=== PATIENT | male | born 1940 | race Caucasian/White ===

== ENCOUNTER 2020-01-21 03:06 | Inpatient (IN) ==
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
--- NOTE | 2020-01-21 09:45 | XRay Report ---
INDICATION: pain; hx metast pancreatic ca; hx constipation TECHNIQUE: Supine and upright abdomen. COMPARISON: Comparison made with previous examination dated 08/30/2019. Patient has undergone previous abdominal MRI scan on 09/14/2019. FINDINGS:Bowel gas pattern is unremarkable. Colon is within normal limits. No evidence for significant constipation. There is no impaction. No gas-filled dilated small bowel. No evidence for mechanical small bowel obstruction. There is no biliary or portal venous gas. No pneumatosis. Incidental note is made of degenerative disc disease in the lower lumbar spine IMPRESSION: 1. Nonspecific and nonobstructive bowel gas pattern 2. No focal abnormality Interpreted and Authenticated by: Erik Bishop 01/21/20
[2020-01-21] MEDS ORDERED: ONDANSETRON 4 MG/2 ML VIAL IV PRN (11:07)
[2020-01-21] MEDS ORDERED: morphine 2 MG/ML VIAL IV PRN (11:07)
[2020-01-21] MEDS ORDERED: LACTOPEROXI/GLUC OXID/POT THIO 1 EACH GEL..EA. TOPICAL PRN (12:34)
--- NOTE | 2020-01-21 12:35 | Internal Med History&Physical ---
HPI History of Present Illness Patient information: Note initiated : 01/21/20 at 12:35 pm Service Date, if different from initiated Date: [] Patient: Bright Ball a 79 y/o M admitted on 01/21/20 for Cancer pain. Chief Complaint: Altered mental status/aggressive behavior History of present illness: Mr. Ball is a 79 year old M with a known pancreatic adenocarcinoma on hospice who has been living with his with ongoing end-of-life care. He is currently on multiple opioids/antianxiety and antipsychotic medications. However over the last 24 hours patient has become increasingly agitated confused and combative to the point his is extremely concerned about her ability to take care of him and fearful of injury due to his aggressive behavior. He has also been refusing his medications and the reason she brought him to the ER for further evaluation and possible placement On arrival patient is minimally responsive, altered. After discussion with family it was decided the patient will be admitted to the hospital service. Subsequently hospitalist service was consulted At the time of my evaluation patient is very responsive. GCS 6. No family members available. Most of the history was obtained from review of medical records and from ER physician. Case management was consulted and they would be able to place patient in a care center in the next 24 hours. At this time patient will be continued on hospice with aggressive pain and symptom management. Review of systems Unable to obtain in light of patient's mental status PFSH PFSH All Active Problems (Updated 01/21/20 @ 09:57 by Michael Reddy DO) Acute urinary retention (Acute) Agitation (Acute) Aggressive behavior (Acute) Caregiver has difficulty performing caretaking (Acute) Hospice care patient (Acute) Displacement of Martinez catheter (Acute) Pressure ulcer of right foot (Acute) Pressure ulcer of sacral region, stage 2 (Acute) Hallucinations (Acute) Paranoia (Acute) Acute urinary retention (Chronic) Basal cell carcinoma of skin, unspecified (Chronic) Anxiety disorder (Chronic) Malignant neoplasm of pancreatic duct (Chronic) Elevated liver enzymes (Acute) Adenocarcinoma of pancreas (Acute) Abdominal pain (Chronic) Medical History (Updated 01/21/20 @ 09:57 by Michael Reddy DO) Acute urinary retention (Chronic) chronic Martinez since Oct? Pt pulled out 01-20-2020, replaced 01-21-2020. 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 Family History (Updated 12/27/19 @ 11:43 by Eunice Coffey) Other No pertinent family history Social History (System 07/05/19 @ 09:16 by Clair Moyer) smoking status: Unknown if ever smoked alcohol intake frequency: does not drink substance use type: does not use MEDS/ALLERGIES Home Medications and Allergies Home Medications Medication Instructions Recorded Confirmed Type oxycodone-acetaminophen [Percocet] 1 tab PO Q4H PRN #20 tab 10/06/19 10/09/19 Rx lorazepam [Ativan] 1 mg PO TID PRN #20 tab 10/09/19 Rx ondansetron 4 mg PO Q4-6HP PRN #10 tab 10/09/19 Rx promethazine 25 mg PO Q6H PRN #10 tab 10/09/19 Rx Haldol 2 mg PO Q12 PRN 01/21/20 01/21/20 History acetaminophen NJ 01/21/20 History bisacodyl mg NJ 01/21/20 History fentanyl 01/21/20 History fentanyl 01/21/20 History hydrocodone-acetaminophen tab PO Q4 PRN 01/21/20 History hyoscyamine sulfate [Levsin] 0.25 mg PO QID PRN 01/21/20 01/21/20 History lorazepam [Ativan] PRN MDD anxiety or nausea 01/21/20 History magnesium citrate 300 ml PO ONCE 01/21/20 01/21/20 History mirtazapine 30 mg PO QHS 01/21/20 01/21/20 History mirtazapine mg PO HS 01/21/20 History morphine 5 - 20 mg PO PRN 01/21/20 History morphine [MS Contin] 15 mg PO Q12H 01/21/20 01/21/20 History morphine [MS Contin] 30 mg PO Q12H 01/21/20 01/21/20 History morphine [MS Contin] 60 mg PO Q12H 01/21/20 01/21/20 History omeprazole 20 mg PO QDAY 01/21/20 01/21/20 History oxycodone-acetaminophen 1 tab PO Q4H PRN 01/21/20 01/21/20 History scopolamine base [Transderm-Scop] 1 patch TRANSDERMAL Q72H 01/21/20 01/21/20 History sennosides-docusate sodium 1 tab-cap PO QHS 01/21/20 01/21/20 History [Senokot-S] silver [SilvaSorb Dressing] ea TOPICAL WEEKLY 01/21/20 History tamsulosin 0.4 mg PO QDAY 01/21/20 01/21/20 History Allergies Allergy/AdvReac Type Severity Reaction Status Date / Time No Known Drug Allergies Allergy Verified 01/21/20 03:19 EXAM Constitutional Vitals: Temp Pulse Resp BP Pulse Ox 98.6 F 91 H 22 94/63 93 01/21/20 03:25 01/21/20 11:43 01/21/20 03:58 01/21/20 11:01 01/21/20 11:43 physical examination deferred in light of patient's comfort GCS 11 Frail/icteric A/P Narrative A/P Narrative: * Adenocarcinoma pancreas currently on hospice. Continue aggressive pain and symptom management * Self-care deficits-patient will be transferred to care facility currently being coordinated by case management . Plan * Observation admission * Aggressive pain and symptom management * Case management to coordinate transfer to care facility due to profound self- care deficit Time Spent With Patient Time: Total time spent is greater than 50% in coordination of care (as doc umented) at patient's floor/unit and/or counseling patient: QUALITY Stroke Symptom Onset Unknown: No
[2020-01-21] MEDS: LORazepam 2 MG/ML VIAL IV PRN (21:48)
[2020-01-21] MEDS: HYDROmorphone 1 MG/ML SYRINGE IV PRN (21:49)
[2020-01-21] MEDS: 0.9 % SODIUM CHLORIDE 10 ML SYRINGE IV SCH ×2 (22:24→22:25)
[2020-01-21] MEDS: 0.9 % SODIUM CHLORIDE 1,000 ML IV SCH (22:24)
[2020-01-21] MEDS: DOCUSATE SODIUM 100 MG CAPSULE PO SCH (22:25)
[2020-01-22] MEDS: LORazepam 2 MG/ML VIAL IV PRN ×4 (04:17→23:21)
[2020-01-22] MEDS: 0.9 % SODIUM CHLORIDE 10 ML SYRINGE IV SCH ×3 (07:23→21:51)
--- NOTE | 2020-01-22 10:22 | Internal Med Progress Note ---
SUBJECTIVE Subjective Patient information: Note initiated : 01/22/20 at 10:19 am Service Date, if different from initiated Date: [] Patient: Bright Ball a 79 y/o M admitted on 01/21/20 for Cancer pain. Chief Complaint: History of present illness: Mr. 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 He is currently on multiple opioids/antianxiety and antipsychotic medications. However over the last 24 hours patient has become increasingly agitated confused and combative to the point his is extremely concerned about her ability to take care of him and fearful of injury due to his aggressive behavior. He has also been refusing his medications and the reason she brought him to the ER for further evaluation and possible placement On arrival patient is minimally responsive, altered. After discussion with family it was decided the patient will be admitted to the hospital service. Subsequently hospitalist service was consulted At the time of my evaluation patient is very responsive. GCS 6. No family members available. Most of the history was obtained from review of medical records and from ER physician. Case management was consulted and they would be able to place patient in a care center in the next 24 hours. At this time patient will be continued on hospice with aggressive pain and symptom management. 01/21-patient on end-of-life care. No overnight events. Sats low 90s. Systolics around 80s. Remains unresponsive. Appears comfortable. No concerns expressed by nursing staff. Case management coordinating transition to hospice and considering available options including home hospice versus facility transfer for end-of-life care. Constitutional Vitals: Vital Signs Temp Pulse Resp BP Pulse Ox 98.3 F 102 H 20 95/62 96 01/22/20 07:13 01/21/20 19:16 01/22/20 07:13 01/22/20 07:13 01/22/20 07:13 Period Temp Pulse Resp BP Sys/Chance Pulse Ox Last 24 Hr 97.0 F-98.8 F 90-102 16-20 85-100/60-66 93-100 Intake and Output 01/21/20 01/22/20 01/22/20 21:59 05:59 13:59 Output Total 800 Balance -800 Weight 68.039 kg Sedated and nonresponsive Nonlabored breathing No anxiety or discomfort noted Intake & Output: Intake & Output 01/21/20 01/22/20 01/22/20 21:59 05:59 13:59 Output Total 800 Balance -800 Weight 68.039 kg Output: Urine Catheter Amount 800 Other: Urine Color Tea Colored Uretheral (Martinez) Dark Tati OBJ DATA Labs Meds: Medications Docusate Sodium (Colace) 100 mg PO BID [facility] Last Admin: 01/21/20 22:25 Dose: Not Given Documented by: Glucose Oxid/Lactoperoxid/Muramidas (Biotene) 1 each TOPICAL PRN PRN PRN Reason: Dry Mouth Hydromorphone HCl (Dilaudid) 0 mg IV Q2HP PRN; Protocol PRN Reason: Per Pain Protocol Last Admin: 01/21/20 21:49 Dose: 1 mg Documented by: Sodium Chloride (Sodium Chloride 0.9%) 1,000 mls @ 50 mls/hr IV .Q20H [facility] Last Admin: 01/21/20 22:24 Dose: 50 mls/hr Documented by: Lorazepam (Ativan) 0 mg IV Q1HP PRN; Protocol PRN Reason: ANXIETY/SEDATION Last Admin: 01/22/20 04:17 Dose: 2 mg Documented by: Ondansetron HCl (Zofran) 4 mg IV Q4HP PRN PRN Reason: Nausea And Vomiting Sodium Chloride (Saline Flush) 10 ml IV Q8 [facility] Last Admin: 01/22/20 07:23 Dose: Not Given Documented by: A/P Narrative A/P Narrative: * Adenocarcinoma pancreas currently on end-of-life care/palliation. Continue aggressive pain and symptom management, anticipate transfer to facility for continued end-of-life care as family unable to take care of patient due to intermittent aggression * Intermittent aggressive/psychotic episodes-on sedative-hypnotics and antipsychotics as needed * Self-care deficits-will need facility transfer Plan * Continue aggressive pain and symptom management * Case management coordinating transfer to facility for continued end-of-life care Time Spent With Patient Time: Total time spent is greater than 50% in coordination of care (as documented) at patient's floor/unit and/or counseling patient: QUALITY Stroke Symptom Onset Unknown: No
[2020-01-22] MEDS: 0.9 % SODIUM CHLORIDE 1,000 ML IV SCH ×3 (11:18→21:51)
[2020-01-22] MEDS: DOCUSATE SODIUM 100 MG CAPSULE PO SCH ×2 (11:18→21:51)
--- NOTE | 2020-01-22 13:37 | Internal Med Progress Note ---
SUBJECTIVE Subjective Patient information: Note initiated : 01/22/20 at 1:34 pm Service Date, if different from initiated Date: [] Patient: Bright Ball a 79 y/o M admitted on 01/21/20 for Cancer pain. Chief Complaint: [] Interval history: History of present illness: Mr. Ball is a 79 year old M with a known pancreatic adenocarcinoma on hospice who has been living with his with ongoing end-of-life care. He is currently on multiple opioids/antianxiety and antipsychotic medications. However over the last 24 hours patient has become increasingly agitated confused and combative to the point his is extremely concerned about her ability to take care of him and fearful of injury due to his aggressive behavior. He has also been refusing his medications and the reason she brought him to the ER for further evaluation and possible placement On arrival patient is minimally responsive, altered. After discussion with family it was decided the patient will be admitted to the hospital service. Subsequently hospitalist service was consulted At the time of my evaluation patient is very responsive. GCS 6. No family members available. Most of the history was obtained from review of medical records and from ER physician. Case management was consulted and they would be able to place patient in a care center in the next 24 hours. At this time patient will be continued on hospice with aggressive pain and symptom management. 01/21-patient on end-of-life care. No overnight events. Sats low 90s. Systolics around 80s. Remains unresponsive. Appears comfortable. No concerns expressed by nursing staff. Case management coordinating transition to hospice and considering available options including home hospice versus facility transfer for end-of-life care. 01/22 Constitutional Vitals: Vital Signs Temp Pulse Resp BP Pulse Ox 98.3 F 102 H 20 95/62 96 01/22/20 07:13 01/21/20 19:16 01/22/20 09:00 01/22/20 07:13 01/22/20 09:00 Period Temp Pulse Resp BP Sys/Chance Pulse Ox Last 24 Hr 98 F-98.8 F 102 18-20 85-95/61-65 96-100 Intake and Output 01/21/20 01/22/20 01/22/20 21:59 05:59 13:59 Output Total 800 Balance -800 Weight 68.039 kg Intake & Output: Intake & Output 01/21/20 01/22/20 01/22/20 21:59 05:59 13:59 Output Total 800 Balance -800 Weight 68.039 kg Output: Urine Catheter Amount 800 Other: Urine Color Tea Colored Tea Colored Uretheral (Martinez) Dark Tati Dark Tati Exam: General: Alert, Awake, No acute Distress Eyes/N/T: EOMI, Head/Neck: neck supple, CV: RRR, No murmurs, Pulm: Clear b/l, no wheezing/rhonchi/rales Abd: soft, nontender, +BS x4 Ext: no clubbing/cyanosis/edema Neuro: Alert, no focal deficits, moves all extremities, Skin: warm/dry OBJ DATA Labs Meds: Medications Docusate Sodium (Colace) 100 mg PO BID [facility] Last Admin: 01/22/20 11:18 Dose: Not Given Documented by: Glucose Oxid/Lactoperoxid/Muramidas (Biotene) 1 each TOPICAL PRN PRN PRN Reason: Dry Mouth Hydromorphone HCl (Dilaudid) 0 mg IV Q2HP PRN; Protocol PRN Reason: Per Pain Protocol Last Admin: 01/21/20 21:49 Dose: 1 mg Documented by: Sodium Chloride (Sodium Chloride 0.9%) 1,000 mls @ 50 mls/hr IV .Q20H [facility] Last Admin: 01/22/20 11:18 Dose: Not Given Documented by: Lorazepam (Ativan) 0 mg IV Q1HP PRN; Protocol PRN Reason: ANXIETY/SEDATION Last Admin: 01/22/20 04:17 Dose: 2 mg Documented by: Ondansetron HCl (Zofran) 4 mg IV Q4HP PRN PRN Reason: Nausea And Vomiting Sodium Chloride (Saline Flush) 10 ml IV Q8 [facility] Last Admin: 01/22/20 07:23 Dose: Not Given Documented by: A/P Narrative A/P Narrative: A/P: *Adenocarcinoma pancreas currently on end-of-life care/palliation -Continue aggressive pain and symptom management, anticipate transfer to facility for continued end-of-life care as family unable to take care of patient due to intermittent aggression *Intermittent aggressive/psychotic episodes: -on sedative-hypnotics and antipsychotics as needed *Self-care deficits: will need facility transfer - for placement to facility on hospice Time Spent With Patient Time: Total time spent is greater than 50% in coordination of care (as documented) at patient's floor/unit and/or counseling patient: QUALITY Stroke Symptom Onset Unknown: No
[2020-01-22] MEDS: HYDROmorphone 1 MG/ML SYRINGE IV PRN (14:25)
--- NOTE | 2020-01-23 07:09 | Internal Med Progress Note ---
SUBJECTIVE Subjective Patient information: Note initiated : 01/23/20 at 7:08 am Service Date, if different from initiated Date: [] Patient: Bright Ball 79 y/o M admitted on 01/21/20 for Cancer pain. Chief Complaint: [] Interval history: History of present illness: Mr. Ball is a 79 year old M with a known pancreatic adenocarcinoma on hospice who has been living with his with ongoing end-of-life care. He is currently on multiple opioids/antianxiety and antipsychotic medications. However over the last 24 hours patient has become increasingly agitated confused and combative to the point his is extremely concerned about her ability to take care of him and fearful of injury due to his aggressive behavior. He has also been refusing his medications and the reason she brought him to the ER for further evaluation and possible placement On arrival patient is minimally responsive, altered. After discussion with family it was decided the patient will be admitted to the hospital service. Subsequently hospitalist service was consulted At the time of my evaluation patient is very responsive. GCS 6. No family members available. Most of the history was obtained from review of medical records and from ER physician. Case management was consulted and they would be able to place patient in a care center in the next 24 hours. At this time patient will be continued on hospice with aggressive pain and symptom management. 01/21-patient on end-of-life care. No overnight events. Sats low 90s. Systolics around 80s. Remains unresponsive. Appears comfortable. No concerns expressed by nursing staff. Case management coordinating transition to hospice and considering available options including home hospice versus facility transfer for end-of-life care. 01/22 No issues overnight. Unable to gather review of systems as patient is nonverbal Constitutional Vitals: Vital Signs Temp Pulse Resp BP Pulse Ox 97.1 F 83 16 95/62 95 01/22/20 20:00 01/22/20 20:00 01/22/20 20:00 01/22/20 07:13 01/22/20 20:00 Period Temp Pulse Resp BP Sys/Chance Pulse Ox Last 24 Hr 97.1 F-98.3 F 83 16-20 95/62 95-96 Intake and Output 01/22/20 01/23/20 01/23/20 21:59 05:59 13:59 Intake Total 801 Output Total 450 Balance 801 -450 Weight 68.492 kg Intake & Output: Intake & Output 01/22/20 01/23/20 01/23/20 21:59 05:59 13:59 Intake Total 801 Output Total 450 Balance 801 -450 Weight 68.492 kg Intake: IV 801 Sodium Chloride 0.9% 1,000 ml @ 801 50 mls/hr IV .Q20H [facility] Rx#: [id number] Output: Urine Catheter Amount 450 Other: Urine Appearance Sediment Uretheral (Martinez) Hematuria Urine Color Tea Colored Uretheral (Martinez) Tea Colored Urine Odor Strong Exam: General: sleeping, No acute Distress, cachectic Eyes/N/T: EOMI, Head/Neck: neck supple, CV: RRR, No murmurs, Pulm: Clear b/l, no wheezing/rhonchi/rales Abd: soft, nontender, +BS x4 Ext: no clubbing/cyanosis/edema Neuro: Minimally responsive, sleeping and partially opens eyes to touch, no focal deficits, moves all extremities, nonverbal Skin: warm/dry OBJ DATA Labs Meds: Medications Docusate Sodium (Colace) 100 mg PO BID [facility] Last Admin: 01/22/20 21:51 Dose: Not Given Documented by: Glucose Oxid/Lactoperoxid/Muramidas (Biotene) 1 each TOPICAL PRN PRN PRN Reason: Dry Mouth Hydromorphone HCl (Dilaudid) 0 mg IV Q2HP PRN; Protocol PRN Reason: Per Pain Protocol Last Admin: 01/22/20 14:25 Dose: 1 mg Documented by: Sodium Chloride (Sodium Chloride 0.9%) 1,000 mls @ 20 mls/hr IV .Q24H [facility] Last Admin: 01/22/20 21:51 Dose: Not Given Documented by: Lorazepam (Ativan) 0 mg IV Q1HP PRN; Protocol PRN Reason: ANXIETY/SEDATION Last Admin: 01/22/20 23:21 Dose: 2 mg Documented by: Ondansetron HCl (Zofran) 4 mg IV Q4HP PRN PRN Reason: Nausea And Vomiting Sodium Chloride (Saline Flush) 10 ml IV Q8 [facility] Last Admin: 01/22/20 21:51 Dose: Not Given Documented by: A/P Narrative A/P Narrative: A/P: *Adenocarcinoma pancreas currently on end-of-life care/palliation -Continue aggressive pain and symptom management, anticipate transfer to facility for continued end-of-life care as family unable to take care of patient due to intermittent aggression *Intermittent aggressive/psychotic episodes: -on sedative-hypnotics and antipsychotics as needed *Self-care deficits: will need facility transfer -CM for placement to facility on hospice Time Spent With Patient Time: Total time spent is greater than 50% in coordination of care (as documented) at patient's floor/unit and/or counseling patient: QUALITY Stroke Symptom Onset Unknown: No
[2020-01-23] MEDS: LORazepam 2 MG/ML VIAL IV PRN ×3 (07:44→20:06)
[2020-01-23] MEDS: 0.9 % SODIUM CHLORIDE 10 ML SYRINGE IV SCH ×3 (07:44→20:05)
[2020-01-23] MEDS: 0.9 % SODIUM CHLORIDE 1,000 ML IV SCH ×2 (09:00→16:22)
[2020-01-23] MEDS: DOCUSATE SODIUM 100 MG CAPSULE PO SCH ×2 (09:10→20:05)
--- NOTE | 2020-01-23 10:15 | Discharge Summary ---
Discharge Provider Provider Patient information: Note initiated : 01/23/20 at 10:13 am Service Date, if different from initiated Date: [] Patient: Bright Ball 79 y/o M admitted on 01/21/20 for Cancer pain. Chief Complaint: [] Date of admission: 01/21/20 11:44 Discharge date: 01/24/20 Primary care physician: Camron Gonzalez Consults: 01/22/20 09:22 Consult to Physician [CONS] Routine Comment: Consulting Provider: Rolf Echols Reason For Exam: Physician to Consult Discharge Meds Discharge Medications Home Medications oxycodone-acetaminophen [Percocet] 1 tab PO Q4H PRN #20 tab 10/06/19 [Rx Confirmed 10/09/19 Last Taken Unknown] lorazepam [Ativan] 1 mg PO TID PRN #20 tab 10/09/19 [Rx Last Taken Unknown] ondansetron 4 mg PO Q4-6HP PRN #10 tab 10/09/19 [Rx Last Taken Unknown] promethazine 25 mg PO Q6H PRN #10 tab 10/09/19 [Rx Last Taken Unknown] Haldol 2 mg PO Q12 PRN 01/21/20 [History Confirmed 01/21/20 Last Taken Unknown] SilvaSorb Dressing ea TOPICAL WEEKLY 01/21/20 [History Last Taken Unknown] acetaminophen [place] 01/21/20 [History Last Taken Unknown] bisacodyl mg [place] 01/21/20 [History Last Taken Unknown] fentanyl 01/21/20 [History Last Taken Unknown] fentanyl 01/21/20 [History Last Taken Unknown] hydrocodone-acetaminophen tab PO Q4 PRN 01/21/20 [History Last Taken Unknown] hyoscyamine sulfate [Levsin] 0.25 mg PO QID PRN 01/21/20 [History Confirmed 01/21/20 Last Taken Unknown] lorazepam [Ativan] PRN MDD anxiety or nausea 01/21/20 [History Last Taken Unknown] magnesium citrate 300 ml PO ONCE 01/21/20 [History Confirmed 01/21/20 Last Taken Unknown] mirtazapine 30 mg PO QHS 01/21/20 [History Confirmed 01/21/20 Last Taken Unknown] mirtazapine mg PO HS 01/21/20 [History Last Taken Unknown] morphine 5 - 20 mg PO PRN 01/21/20 [History Last Taken Unknown] morphine [MS Contin] 15 mg PO Q12H 01/21/20 [History Confirmed 01/21/20 Last Taken Unknown] morphine [MS Contin] 30 mg PO Q12H 01/21/20 [History Confirmed 01/21/20 Last Taken Unknown] morphine [MS Contin] 60 mg PO Q12H 01/21/20 [History Confirmed 01/21/20 Last Taken Unknown] omeprazole 20 mg PO QDAY 01/21/20 [History Confirmed 01/21/20 Last Taken Unknown] oxycodone-acetaminophen 1 tab PO Q4H PRN 01/21/20 [History Confirmed 01/21/20 Last Taken Unknown] scopolamine base [Transderm-Scop] 1 patch TRANSDERMAL Q72H 01/21/20 [History Confirmed 01/21/20 Last Taken Unknown] sennosides-docusate sodium [Senokot-S] 1 tab-cap PO QHS 01/21/20 [History Confirmed 01/21/20 Last Taken Unknown] tamsulosin 0.4 mg PO QDAY 01/21/20 [History Confirmed 01/21/20 Last Taken Unknown] COURSE Hospital Course Hospital course: History of present illness: Mr. Ball is a 79 year old M with a known pancreatic adenocarcinoma on hospice who has been living with his with ongoing end-of-life care. He is currently on multiple opioids/antianxiety and antipsychotic medications. However over the last 24 hours patient has become increasingly agitated confused and combative to the point his is extremely concerned about her ability to take care of him and fearful of injury due to his aggressive behavior. He has also been refusing his medications and the reason she brought him to the ER for further evaluation and possible placement On arrival patient is minimally responsive, altered. After discussion with family it was decided the patient will be admitted to the hospital service. Subsequently hospitalist service was consulted At the time of my evaluation patient is very responsive. GCS 6. No family members available. Most of the history was obtained from review of medical records and from ER physician. Case management was consulted and they would be able to place patient in a care center in the next 24 hours. At this time patient will be continued on hospice with aggressive pain and symptom management. 01/21-patient on end-of-life care. No overnight events. Sats low 90s. Systolics around 80s. Remains unresponsive. Appears comfortable. No concerns expressed by nursing staff. Case management coordinating transition to hospice and considering available options including home hospice versus facility transfer for end-of-life care. 01/22 No issues overnight. Unable to gather review of systems as patient is nonverbal 01/23 No issues overnight or new complaints. Patient minimally responsive unable to gather review of systems as patient is nonverbal A/P: *Adenocarcinoma pancreas currently on end-of-life care/palliation -Continue aggressive pain and symptom management, anticipate transfer to facility for continued end-of-life care as family unable to take care of patient due to intermittent aggression *Intermittent aggressive/psychotic episodes: -on sedative-hypnotics and antipsychotics as needed *Self-care deficits: will need facility transfer -CM for placement to facility on hospice Discharge diagnosis: Adenocarcinoma of the pancreas Time Spent with Patient Time attestation: Total time spent providing and/or coordinating discharge services: EXAM Constitutional Vitals: Temp Pulse Resp BP Pulse Ox 97.1 F 82 16 108/76 89 L 01/22/20 20:00 01/23/20 08:00 01/23/20 08:00 01/23/20 08:00 01/23/20 08:00 Discharge Plan Patient/Caregiver Discharge Instructions Activity: increase activity as tolerated Diet: Regular Diet Prescriptions: Continued oxycodone-acetaminophen [Percocet] 5-325 mg tablet 1 tab PO Q4H PRN (Reason: pain) Qty: 20 RF: 0 promethazine 25 mg Tablet 25 mg PO Q6H PRN (Reason: Nausea) Qty: 10 RF: 0 ondansetron 4 mg Tablet,Disintegrating 4 mg PO Q4-6HP PRN (Reason: Nausea) Qty: 10 RF: 0 lorazepam [Ativan] 1 mg tablet 1 mg PO TID PRN (Reason: nausea and vomiting) Qty: 20 RF: 0 Haldol 2 mg PO Q12 PRN (Reason: Agitation) RF: 0 morphine 5 - 20 mg PO PRN (Reason: pain or SOB) RF: 0 acetaminophen 650 mg suppository NJ RF: 0 bisacodyl 10 mg suppository NJ RF: 0 fentanyl 12 mcg/hr patch 72 hour RF: 0 hyoscyamine sulfate [Levsin] 0.125 mg Tablet 0.25 mg PO QID PRN (Reason: Secretions) RF: 0 magnesium citrate Solution 300 ml PO ONCE RF: 0 sennosides-docusate sodium [Senokot-S] 8.6-50 mg Tablet 1 tab-cap PO QHS RF: 0 oxycodone-acetaminophen 5-325 mg Tablet 1 tab PO Q4H PRN (Reason: pain or fever) RF: 0 morphine [MS Contin] 60 mg Tablet Extended Release 60 mg PO Q12H RF: 0 omeprazole 20 mg Capsule,Delayed Release(Dr/Ec) 20 mg PO QDAY RF: 0 SilvaSorb Dressing 4 X 8 " Bandage TOPICAL WEEKLY RF: 0 mirtazapine 30 mg Tablet,Disintegrating 30 mg PO QHS RF: 0 hydrocodone-acetaminophen 10-325 mg Tablet PO Q4 PRN (Reason: pain or fever) RF: 0 tamsulosin 0.4 mg Capsule 0.4 mg PO QDAY RF: 0 mirtazapine 15 mg tablet PO HS RF: 0 lorazepam [Ativan] 1 mg tablet MDD anxiety or nausea PRN (Reason: q8) RF: 0 fentanyl 12 mcg/hr patch 72 hour RF: 0 morphine [MS Contin] 30 mg Tablet Extended Release 30 mg PO Q12H RF: 0 morphine [MS Contin] 15 mg Tablet Extended Release 15 mg PO Q12H RF: 0 scopolamine base [Transderm-Scop] 1 mg over 3 days Patch 3 Day 1 patch TRANSDERMAL Q72H RF: 0 Follow Up Plan Follow up with: Camron Gonzalez MD [Primary Care Provider] - Patient Disposition: Xfer Assisted Living Facility Rehab Potential: Serious I certify that the patient requires SNF services: Yes Overall status at discharge: patient is not back to baseline Discharge Orders: Discharge Order (Routine); Ordered 01/24/20 Ordered By: Manuel Gibson
[2020-01-24] MEDS: LORazepam 2 MG/ML VIAL IV PRN (00:18)
[2020-01-24] MEDS: HYDROmorphone 1 MG/ML SYRINGE IV PRN ×2 (00:19→13:07)
[2020-01-24] MEDS: 0.9 % SODIUM CHLORIDE 10 ML SYRINGE IV SCH (05:58)
--- NOTE | 2020-01-24 07:17 | Internal Med Progress Note ---
SUBJECTIVE Subjective Patient information: Note initiated : 01/24/20 at 7:16 am Service Date, if different from initiated Date: [] Patient: Bright Ball 79 y/o M admitted on 01/23/20 for Cancer pain. Chief Complaint: [] Interval history: History of present illness: Mr. Ball is a 79 year old M with a known pancreatic adenocarcinoma on hospice who has been living with his with ongoing end-of-life care. He is currently on multiple opioids/antianxiety and antipsychotic medications. However over the last 24 hours patient has become increasingly agitated confused and combative to the point his is extremely concerned about her ability to take care of him and fearful of injury due to his aggressive behavior. He has also been refusing his medications and the reason she brought him to the ER for further evaluation and possible placement On arrival patient is minimally responsive, altered. After discussion with family it was decided the patient will be admitted to the hospital service. Subsequently hospitalist service was consulted At the time of my evaluation patient is very responsive. GCS 6. No family members available. Most of the history was obtained from review of medical records and from ER physician. Case management was consulted and they would be able to place patient in a care center in the next 24 hours. At this time patient will be continued on hospice with aggressive pain and symptom management. 01/21-patient on end-of-life care. No overnight events. Sats low 90s. Systolics around 80s. Remains unresponsive. Appears comfortable. No concerns expressed by nursing staff. Case management coordinating transition to hospice and considering available options including home hospice versus facility transfer for end-of-life care. 01/22 No issues overnight. 01/23 No issues overnight or new complaints. Patient minimally responsive unable to gather review of systems as patient is nonverbal Constitutional Vitals: Vital Signs Temp Pulse Resp BP Pulse Ox 97.3 F 82 14 89/58 96 01/23/20 20:00 01/23/20 08:00 01/23/20 20:00 01/23/20 20:00 01/23/20 20:00 Period Temp Pulse Resp BP Sys/Chance Pulse Ox Last 24 Hr 97.3 F 82 14-16 89-108/58-76 89-96 Intake and Output 01/23/20 01/24/20 01/24/20 21:59 05:59 13:59 Intake Total 0 Output Total 200 100 Balance -200 -100 Weight 66.848 kg Intake & Output: Intake & Output 01/23/20 01/24/20 01/24/20 21:59 05:59 13:59 Intake Total 0 Output Total 200 100 Balance -200 -100 Weight 66.848 kg Intake: Oral 0 Output: Urine Catheter Amount 200 100 Other: Percent of Meal Consumed Refused Urine Appearance Sediment Urine Color Dark Tati Tea Colored Uretheral (Martinez) Dark Tati Urine Odor Strong Exam: General: Sleeping, cachectic Eyes/N/T: EOMI, Head/Neck: neck supple, CV: RRR, No murmurs, Pulm: Clear b/l, no wheezing/rhonchi/rales Abd: soft, nontender, +BS x4 Ext: no clubbing/cyanosis/edema Neuro: Poorly responsive, nonverbal Skin: warm/dry OBJ DATA Labs Meds: Medications Docusate Sodium (Colace) 100 mg PO BID [facility] Last Admin: 01/23/20 20:05 Dose: Not Given Documented by: Glucose Oxid/Lactoperoxid/Muramidas (Biotene) 1 each TOPICAL PRN PRN PRN Reason: Dry Mouth Hydromorphone HCl (Dilaudid) 0 mg IV Q2HP PRN; Protocol PRN Reason: Per Pain Protocol Last Admin: 01/24/20 00:19 Dose: 1 mg Documented by: Sodium Chloride (Sodium Chloride 0.9%) 1,000 mls @ 20 mls/hr IV .Q24H [facility] Last Admin: 01/23/20 16:22 Dose: Not Given Documented by: Lorazepam (Ativan) 0 mg IV Q1HP PRN; Protocol PRN Reason: ANXIETY/SEDATION Last Admin: 01/24/20 00:18 Dose: 2 mg Documented by: Ondansetron HCl (Zofran) 4 mg IV Q4HP PRN PRN Reason: Nausea And Vomiting Sodium Chloride (Saline Flush) 10 ml IV Q8 [facility] Last Admin: 01/24/20 05:58 Dose: Not Given Documented by: A/P Narrative A/P Narrative: A/P: *Adenocarcinoma pancreas currently on end-of-life care/palliation -Continue aggressive pain and symptom management, anticipate transfer to facility for continued end-of-life care as family unable to take care of patient due to intermittent aggression *Intermittent aggressive/psychotic episodes: -on sedative-hypnotics and antipsychotics as needed *Self-care deficits: will need facility transfer -CM for placement to facility on hospice Time Spent With Patient Time: Total time spent is greater than 50% in coordination of care (as documented) at patient's floor/unit and/or counseling patient: QUALITY Stroke Symptom Onset Unknown: No
[2020-01-24] MEDS: DOCUSATE SODIUM 100 MG CAPSULE PO SCH (11:02)
== END 2020-01-24 13:15 | DRG 436 ==
LOC: ICU 03:06 → ED 03:06 → INTOOBSV 11:44 → OBSVTOIN 11:44 → ICU 11:44
PROVIDERS: ADMIT Internal Medicine; ATTEND Internal Medicine